=== PATIENT | female | born 1950 | race Caucasian/White ===

== ENCOUNTER → 2020-07-06 | Outpatient (CLI) | payer MEDICARE, OTHER ==
[~2020-07-06] MED LIST: ASPIRIN325 MG PO; CEFTIN500 MG PO; CLARITIN10 MG PO; DIGOX125 MCG PO; DILTIAZEM 12HR90 MG PO; FLAGYL500 MG PO; FLECAINIDE ACET50 MG PO; FOLIC ACID 1 MG1 MG PO; JANUVIA50 MG PO; LASIX20 MG PO; LOTENSIN TAB 1010 MG PO; NORCO 10-325 T1 EACH PO; NOVOLOG FL100 UNIT/1 INJ; PRAVACHOL20 MG PO; PRILOSEC OTC20 MG PO; SINGULAIR10 MG PO; SPIRIVA18 MCG INH; SYMBICORT 16010.2 GM INH; SYNTHROID150 MCG PO; TASIGNA200 MG PO; VENTOLIN/PROVE0.5 ML INH; VITAMIN B-6100 MG PO; VITAMIN D50000 UNIT PO; XARELTO10 MG PO; ZOMIG2.5 MG PO
[2020-07-06 13:43] LABS: BUN/CREATININE RATIO 20 (0-10)
[2020-07-07 13:14] LABS: COMPLEMENT C3, SERUM 128 mg/dL (82-167); COMPLEMENT C4, SERUM 20 mg/dL (12-38); RHEUMATOID ARTHRITIS FACTOR <10.0 IU/mL (0.0-13.9)
[2020-07-08 13:14] LABS: RNP ANTIBODIES <0.2 AI (0.0-0.9); SJOGREN'S ANTI-SS-A <0.2 AI (0.0-0.9); SJOGREN'S ANTI-SS-B <0.2 AI (0.0-0.9); SMITH ANTIBODIES <0.2 AI (0.0-0.9)
[2020-07-08 16:14] LABS: DSDNA CRITHIDIA LUCILIAE IFA Negative (Negative)
[2020-07-09 00:09] LABS: CCP ANTIBODIES IGG/IGA 4 units (0-19)
== END ==
LOC: LAB 10:55
PROVIDERS: Internal Medicine
DX: R76.8 Other specified abnormal immunological findings in serum (principal); M25.50 Pain in unspecified joint; Z96.659 Presence of unspecified artificial knee joint; Z85.6 Personal history of leukemia; K74.60 Unspecified cirrhosis of liver
CPT/HCPCS: 36415; 80053; 83520; 86038; 86160; 86200; 86235; 86255; 86431

== ENCOUNTER → 2020-07-06 | Outpatient (CLI) | payer MEDICARE, OTHER | LOC: EXRD 09:49 | DX: M79.641 Pain in right hand (principal); M79.642 Pain in left hand; M19.042 Primary osteoarthritis, left hand; M19.041 Primary osteoarthritis, right hand | CPT/HCPCS: 73130 ==

== ENCOUNTER → 2021-06-30 | Outpatient (CLI) | payer MEDICARE, OTHER | LOC: KOH-I 09:30 | DX: C92.11 Chronic myeloid leukemia, BCR/ABL-positive, in remission (principal); D50.9 Iron deficiency anemia, unspecified; K90.9 Intestinal malabsorption, unspecified; I51.7 Cardiomegaly | CPT/HCPCS: 71250 ==

== ENCOUNTER → 2021-10-05 | Day surgery (SDC) | payer MEDICARE, OTHER ==
[~2021-10-05] MED LIST changes: +AZELASTINE137 MCG/0.; +CRESTOR5 MG PO; +DOCUSATE SODIU100 MG PO; +ELIQUIS 5 MG TAB5 MG PO; +FAMOTIDINE20 MG PO; +LIDOCAINE HCL1 EACH TP; +LINZESS145 MCG PO; +MELATONIN10 M2 PO; +MONTELUKAST SOD10 MG PO; +OXYCODONE HCL5 M1 PO; +POTASSIUM CHLO10 MEQ PO; +REGLAN5 MG PO; +TORSEMIDE20 MG PO; +VITAMIN D21250 MCG PO; -VITAMIN D50000 UNIT PO
[2021-10-05 07:16] LABS: HEMOGLOBIN 15.7 gm/dl (12.3-15.3); RED BLOOD COUNT 5.07 M/UL (4.00-5.10); WHITE BLOOD COUNT 11.6 K/UL (4.5-11.0)
== END | disposition home or self-care (01) ==
LOC: OR 06:17
PROVIDERS: Internal Medicine Gastroenterology
DX: K31.89 Other diseases of stomach and duodenum (principal); K74.69 Other cirrhosis of liver; K72.90 Hepatic failure, unspecified without coma; K75.81 Nonalcoholic steatohepatitis (NASH); K59.09 Other constipation; I10 Essential (primary) hypertension; E66.8 Other obesity; E11.9 Type 2 diabetes mellitus without complications; J44.9 Chronic obstructive pulmonary disease, unspecified; E03.9 Hypothyroidism, unspecified; Z98.0 Intestinal bypass and anastomosis status; Z68.32 Body mass index [BMI] 32.0-32.9, adult; Z88.8 Allergy status to other drugs, medicaments and biological substances; Z79.01 Long term (current) use of anticoagulants
CPT/HCPCS: 36415; 80076; 82962; 85027; 85610; J2704; J7040